=== PATIENT | female | born 1960 | race African-American/Black ===

== ENCOUNTER 2020-01-19 15:07 | Emergency (ER) | payer SELFPAY ==
--- NOTE | ~2020-01-19 | XR_ITS ---
EXAMINATION: XR hand RT min 3V DATE: 01/19/2020 15:54 INDICATION: Right hand dog bite. TECHNIQUE: 3 views of right hand were obtained. COMPARISON: None. FINDINGS: Bone alignment is normal. There is a fracture deformity of diaphysis of fifth metacarpal, l ikely old. 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 There is a 4 mm radiop aque foreign body in the soft tissues radial to first metacarpal. IMPRESSION: 1. 4 mm radiopaque foreign body in the soft tissues radial to first metacarpal. Reviewed, dictated and finalized at location A.
--- NOTE | ~2020-01-19 | XR_ITS ---
XR tibia fibula LT 2V 01/19/2020 15:54 INDICATION: Dog bite left leg PROCEDURE: 2 views left tibia/fibula COMPARISON: No prior studies for comparison. FINDINGS: Fracture, dislocation or subluxation is not identified. There is lateral soft tissue swelli ng with soft tissue gas, consistent with laceration. The soft tissues appear within normal limits. N o foreign bodies are identified. IMPRESSION: 1: NO ACUTE BONE OR JOINT ABNORMALITY IDENTIFIED. 2: Soft tissue swelling with gas lateral to the fibula. No underlying foreign body. Reviewed, dictated and finalized at location A. IMPRESSION: 1: NO ACUTE BONE OR JOINT ABNORMALITY IDENTIFIED. 2: Soft tissue swelling with gas lateral to the fibula. No underlying foreign b jesus.
[2020-01-19 15:07] VITALS: BP 109/69; PULSE 78; RESP 20; TEMP 36.6; O2SAT 100
--- NOTE | 2020-01-19 15:25 | ED.WOUNDLAC ---
HPI - Wound/Laceration General Chief Complaint: Wound/Laceration Stated Complaint: dog bite Time Seen by Provider: 01/19/20 15:09 Source: patient and EMS Mode of arrival: EMS Limitations: no limitations History of Present Illness HPI narrative: A 59 y/o female pt presents to the ED, via EMS, with c/o a dog bite to the anterior medial and lateral side of her LLE, and rt hand that occurred prior to EMS arrival to the scene. Per EMS, pt was being chased by the police when her vehicle was disabled and she was caught by a police dog. Pt states that her lt leg feels numb at the site of the dog bite. She denies hitting her head or any LOC. Pt is unsure of her last tetanus shot. She notes a PMHx of DM, HTN, and a recent Dx of pancreatic CA that she is supposed to have treatment for on Wednesday at [facility]. Onset (ago): minute(s) Extremity Location: Left: lower leg (anterior medial and lateral) and Right: hand Place: outdoors Patient tetanus UTD: No Context: other (running from the police, caught by police dog) Associated symptoms: loss of feeling/numbness (at dog bite site on lt leg) Related Data Home Medications Medication Instructions Recorded Confirmed acarbose 50 mg PO TID 01/19/20 lisinopril 10 mg PO DAILY 01/19/20 metformin 1,000 mg PO BID 01/19/20 Allergies Allergy/AdvReac Type Severity Reaction Status Date / Time No Known Allergies Allergy Verified 01/19/20 15:11 Review of Systems Review of Systems: All systems reviewed & are unremarkable except as noted in HPI and below Musculoskeletal: Musculoskeletal: Reports numbness (to dog bite site on LLE) Integumentary/Breasts: Skin/Breast: Reports wounds (dog bite to rt hand, anterior medial and lateral LLE) Neurologic: Denies other (LOC) [facility] Past Medical History Medical History (Updated 01/19/20 @ 16:57 by Rashaun Doherty MD) Diabetes mellitus Hypertension Pancreatic cancer Surgical History Surgical History (Updated 01/19/20 @ 16:23 by CLAIRE Hurtado) History of breast augmentation History of breast biopsy Social History Social History (Updated 01/19/20 @ 16:23 by Chivo Warner [employer]) Smoking status: Never smoker Substance use: never Gender identity (if verbalized by the patient): Female Exam Narrative: Exam Narrative: GENERAL: Well-appearing, well-nourished, and in no acute distress. HEAD: Normocephalic, atraumatic. ENT: Mucous membranes moist. CHEST: Clear to auscultation. No respiratory distress. HEART: Regular rate and rhythm. Normal peripheral pulses. EXTREMITIES: Normal range of motion. No edema. SKIN: Warm, dry. Puncture wounds and superficial abrasions to the right hand lateral to the base of the thumb near the thenar eminence. Retained piece of glass identified and removed. Additional puncture wounds and some macerated skin over the left belcher that is superficial. NEURO: Alert and oriented x3. No sharp touch deficit or soft touch deficit to the left belcher where patient reported some numbness. PSYCH: Normal mood and affect. Course Course Emergency Course: Patient informed of results. Will receive first dose of antibiotic here as she will not be able to get any antibiotics until tomorrow at [facility]. Vital Signs Vital signs: Vital Signs Temperature 97.8 F 01/19/20 15:07 Pulse Rate 78 01/19/20 15:07 Respiratory Rate 20 01/19/20 15:07 Blood Pressure 109/69 01/19/20 15:07 Pulse Oximetry 100 01/19/20 15:07 Temperature 97.8 F 01/19/20 15:07 Pulse Rate 78 01/19/20 15:07 Respiratory Rate 20 01/19/20 15:07 Blood Pressure 109/69 01/19/20 15:07 Pulse Oximetry 100 01/19/20 15:07 Procedures Other Procedure Procedure 1: Other Procedure: The right hand over the thenar eminence on the radial aspect near the first metacarpal had a small piece of glass that was fully removed from its superficial position. No anesthetic was used. Needle drivers required to gr
[2020-01-19] MEDS: TETANUS,DIPHTHERIA,AC PERTUSSIS ADULT 0.5 ML (ADACEL) IM (15:50)
[2020-01-19 17:06] LABS: Glucose Point of Care 249 (65-105)
[2020-01-19] MEDS: AMOXICILLIN/CLAVULANATE K 875-125 MG TAB 1 TABLET PO (17:14)
== END 2020-01-19 17:29 ==
PROVIDERS: Emergency Provider Emergency Medicine
DX: S81.852A Open bite, left lower leg, initial encounter (principal); S61.451A Open bite of right hand, initial encounter; S60.511A Abrasion of right hand, initial encounter; E11.9 Type 2 diabetes mellitus without complications; I10 Essential (primary) hypertension; C25.9 Malignant neoplasm of pancreas, unspecified; Z23 Encounter for immunization; W54.0XXA Bitten by dog, initial encounter; Y35.893A Legal intervention involving other specified means, suspect injured, initial encounter; W25.XXXA Contact with sharp glass, initial encounter
CPT/HCPCS: 73130; 73590; 90471; 90715; 99284; A9270